=== PATIENT | male | born 1980 | race Caucasian/White ===

== ENCOUNTER 2018-01-04 15:22 | Emergency (ER) | payer OTHER, SELFPAY ==
[2018-01-04 15:24] VITALS: BP 141/78; PULSE 67; RESP 15; TEMP 36.4; O2SAT 98
--- NOTE | 2018-01-04 15:52 | ED.DCSUM_ITS ---
- ER Visit Summary Date of Service: 01/04/18 Chief Complaint: Facial laceration History of Present Illness: The patient is a 37 M states that he is at work today when he stepped off the back of a truck fell struck his head on the ground. States he saw stars but did not have a loss of conscious. No nausea vomiting. Unsure of his last tetanus. Physical Examination: Afebrile vital signs stable Gen: Well-nourished well-developed Head: Normocephalic 1 cm irregular left eyebrow laceration minimal gaping mild bleeding Eyes: Perrl EOMI ENT: TMs clear no rhinorrhea moist mucous membranes Neck: Supple no lymphadenopathy no JVD nontender CVS: Regular rate rhythm no murmurs normal S1-S2 Respiratory: No distress clear to auscultation bilaterally chest nontender Abdomen: Soft nontender nondistended normal bowel sounds no masses Back: Nontender Extremity: Nontender no edema Skin: Normal color no rash Neuro: alert orientated ?3 CN II-XII intact normal strength sensation reflexes gait cerebellar Psych: Normal affect normal mood Emergency Department Course and Treatment: Wound was washed with Shur-Clens locally anesthetized using 1% lidocaine and closed using a single 5-0 full interrupted rapid suture. Tetanus was updated with Adacel. Wound care discussed with patient. Follow-up with corporate care as needed. Impression: 1. 1 cm facial laceration with repair 2. Tetanus update This note was generated with [employer] dictation software. It may contain incorrect words, spelling, and punctuation that were not noted in review of the chart prior to signing ED Disposition - Plan for ED Patient: Disposition: Home or Assisted Living Chief Complaint: Laceration Instructions: ED Laceration Facial Sutr Tape Referrals: Corporate,Care [GROUP OF PHYSICIANS] - As Needed
[2018-01-04] MEDS: Diphth,Pertuss(Acell),Tet Vac 0.5 ML Vial IM (16:01)
== END 2018-01-04 16:19 | disposition home or self-care (01) ==
PROVIDERS: Emergency Provider Emergency Medicine
DX: S01.112A Laceration without foreign body of left eyelid and periocular area, initial encounter (principal); W17.89XA Other fall from one level to another, initial encounter; Y93.9 Activity, unspecified; Y92.9 Unspecified place or not applicable; Y99.0 Civilian activity done for income or pay; Z23 Encounter for immunization
CPT/HCPCS: 12011; 90471; 90715; 99283